=== PATIENT | male | born 1965 | race Caucasian/White ===

== ENCOUNTER 2017-03-21 12:32 | Day surgery (SDC) | payer BC ==
[~2017-03-21] VITALS: Ht 190.5 cm; Wt 72.6 kg
--- NOTE | ~2017-03-21 | EGD ---
EGD REPORT [facility] [address] [address] NAME: ARAMIS REED : [birth year] STATUS : REG [facility]#: [id number] AGE: 51 ADM/REG DATE : 03/21/17 MR#: [id number] REPORT SERV DATE: 03/21/17 DICTATED BY: LUIS ALFREDO WEINER DATE: 03/21/17 REPORT STATUS : Draft TRANSCRIBED BY: [employer] DATE: 03/21/17 [facility] Center Patient Name: Aramis Reed Date of : 1965 Attending MD: LUIS ALFREDO WEINER MD Procedure Date No Time: 03/21/2017 Procedure: Upper GI endoscopy Indications: Dyspepsia, Diarrhea Referring MD: HOLLI Muñiz Medicines: See the Anesthesia note for documentation of the administered medications Complications: No immediate complications. Procedure: Pre-Anesthesia Assessment: - ASA Grade Assessment: III - A patient with severe systemic disease. After obtaining informed consent, the endoscope was passed under direct vision. Throughout the procedure, the patient's blood pressure, pulse, and oxygen saturations were monitored continuously. The GIF [id number] [id number] was introduced through the mouth, and advanced to the second part of duodenum. The upper GI endoscopy was accomplished without difficulty. The patient tolerated the procedure well. Findings: The 2nd part of the duodenum was normal. Biopsies were taken with a cold forceps for histology. The gastric antrum was normal. Biopsies were taken with a cold forceps for histology. The cardia and gastric fundus were normal on retroflexion. A small hiatus hernia was present. No esophageal varices Impression: - Normal 2nd part of the duodenum. Biopsied. - Normal antrum. Biopsied. - Hiatus hernia. - No esophageal varices Recommendation: - Patient has a contact number available for emergencies. The signs and symptoms of potential delayed complications were discussed with the patient. Return to normal activities tomorrow. Written discharge instructions were provided to the patient. - Regular diet. - Continue present medications. EGD REPORT [facility] [address] [place]. [address] NAME: ARAMIS REED : [birth year] STATUS : REG [facility]#: [id number] AGE: 51 ADM/REG DATE : 03/21/17 MR#: [id number] REPORT SERV DATE: 03/21/17 DICTATED BY: LUIS ALFREDO WEINER DATE: 03/21/17 REPORT STATUS : Draft TRANSCRIBED BY: [employer] DATE: 03/21/17 - Change repeat EGD recall to 3 yrs - Return to my office in 6 weeks. Procedure Code(s): --- Professional --- 36478, Esophagogastroduodenoscopy, flexible, transoral; with biopsy, single or multiple Diagnosis Code(s): --- Professional --- K44.9, Diaphragmatic hernia without obstruction or gangrene K30, Functional dyspepsia R19.7, Diarrhea, unspecified CPT copyright 2013 [employer]. All rights reserved. The codes documented in this report are preliminary and upon shearing supervisor review may be revised to meet current compliance requirements. Luis Alfredo Weiner MD LUIS ALFREDO WEINER MD 03/21/2017 2:06 PM This report has been signed electronically. Number of Addenda: 0 Note Initiated On: 03/21/2017 1:49 PM Scope Withdrawal Time 0 hours 0 minutes 0 seconds [address] [place] [address]
--- NOTE | ~2017-03-21 | EGD ---
EGD REPORT [facility] [address] [address] NAME: ARAMIS REED : [birth year] STATUS : REG [facility]#: [id number] AGE: 51 ADM/REG DATE : 03/21/17 MR#: [id number] REPORT SERV DATE: 03/21/17 DICTATED BY: LUIS ALFREDO WEINER DATE: 03/21/17 REPORT STATUS : Draft TRANSCRIBED BY: [employer] DATE: 03/21/17 Endoscopy Center Patient Name: Aramis Reed Date of : 1965 Attending MD: LUIS ALFREDO WEINER MD Procedure Date No Time: 03/21/2017 Procedure: Flexible Sigmoidoscopy Indications: Diarrhea, S/P colectomy for UC Referring MD: HOLLI Muñiz Medicines: See the Anesthesia note for documentation of the administered medications Complications: No immediate complications. Procedure: Pre-Anesthesia Assessment: - ASA Grade Assessment: II - A patient with mild systemic disease. After obtaining informed consent, the endoscope was passed under direct vision. Throughout the procedure, the patient's blood pressure, pulse, and oxygen saturations were monitored continuously. The [facility] [id number] was introduced through the anus and advanced to 40 cm from the anal verge. The flexible sigmoidoscopy was accomplished without difficulty. The patient tolerated the procedure well. The quality of the bowel preparation was fair. Findings: The perianal and digital rectal examinations were normal. Mild inflammation in terminal ileum, Biopsies were taken with a cold forceps for histology. Moderate inflammation in J pouch, Biopsies were taken with a cold forceps for histology. Impression: - Mild inflammation in terminal ileum - Moderate inflammation in J pouch Recommendation: - Regular diet. - Continue present medications. - FOR YOUR BIOPSY RESULTS: Please go to [email or web address] and register to receive your results via the portal. Your biopsy results will be posted there in about 7 to 10 days. IF you do not see result in 10 days, call office. Procedure Code(s): --- Professional --- 04508, Sigmoidoscopy, flexible; with biopsy, single or EGD REPORT [address] [place]. [address] NAME: ARAMIS REED : [birth year] STATUS : REG [facility] PAT#: [id number] AGE: 51 ADM/REG DATE : 03/21/17 MR#: [id number] REPORT SERV DATE: 03/21/17 DICTATED BY: LUIS ALFREDO WEINER DATE: 03/21/17 REPORT STATUS : Draft TRANSCRIBED BY: [employer] DATE: 03/21/17 multiple Diagnosis Code(s): --- Professional --- R19.7, Diarrhea, unspecified CPT copyright 2013 [employer]. All rights reserved. The codes documented in this report are preliminary and upon medical records clerk review may be revised to meet current compliance requirements. Luis Alfredo Weiner MD LUIS ALFREDO WEINER MD 03/21/2017 2:16 PM This report has been signed electronically. Number of Addenda: 0 Note Initiated On: 03/21/2017 1:43 PM Scope Withdrawal Time 0 hours 0 minutes 0 seconds [address] [facility] [place] [address]
[~2017-03-21 12:32] MED LIST: FLAGYL250 MG PO; LOM PO; OS500+D PO; P5 PO; PROBIOTIC; VITAMIN B-121000 MC1 SL; VITE PO; ZANTAC150 MG PO
== END 2017-03-21 23:59 | disposition home health service (06) ==
LOC: DMU 12:32
PROVIDERS: Internal Medicine Gastroenterology
PROC: 0DBB8ZX Excision of Ileum, Via Natural or Artificial Opening Endoscopic, Diagnostic (ICD-10-PCS; 2017-03-21)
PROC: 0DB98ZX Excision of Duodenum, Via Natural or Artificial Opening Endoscopic, Diagnostic (ICD-10-PCS; principal; 2017-03-21 14:00)
PROC: 0DB68ZX Excision of Stomach, Via Natural or Artificial Opening Endoscopic, Diagnostic (ICD-10-PCS; 2017-03-21 14:00)
DX: K29.50 Unspecified chronic gastritis without bleeding (principal); K44.9 Diaphragmatic hernia without obstruction or gangrene; K29.80 Duodenitis without bleeding; K52.9 Noninfective gastroenteritis and colitis, unspecified; K28.9 Gastrojejunal ulcer, unspecified as acute or chronic, without hemorrhage or perforation; G43.909 Migraine, unspecified, not intractable, without status migrainosus; I49.9 Cardiac arrhythmia, unspecified; D64.9 Anemia, unspecified; Z79.52 Long term (current) use of systemic steroids; Z79.899 Other long term (current) drug therapy; Z90.49 Acquired absence of other specified parts of digestive tract; Z98.890 Other specified postprocedural states
CPT/HCPCS: 88305